=== PATIENT | male | born 1985 | race African-American/Black ===

== ENCOUNTER → 2019-10-02 | Outpatient (CLI) | payer MEDICAID ==
[2019-10-02 08:30] LABS: SPERM MORPHOLOGY SENT TO REFERENC LAB
[2019-10-02 09:25] LABS: SPERM CONCENTRATION 27.9 X10^6/mL (>12.0); TOTAL SPERM COUNT 33.5 X10^6 (>33.0)
[2019-10-02 09:26] LABS: SPERM PROGRESSION 3
== END ==
LOC: LAB 08:23
PROVIDERS: ATTEND Specialist
DX: N46.9 Male infertility, unspecified (principal)
CPT/HCPCS: 36415; 89320